=== PATIENT | male | born 2000 | race Caucasian/White ===

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

== ENCOUNTER 2024-06-24 20:03 | Emergency (ER) | payer OTHER, SELFPAY ==
[~2024-06-24] VITALS: Ht 177.8 cm; Wt 128.2 kg
[2024-06-24 20:03] VITALS: BP 110/55; TEMP 97.6; O2SAT 97
[~2024-06-24 20:03] MED LIST: IBUP200C25 PO
== END 2024-06-24 21:13 | disposition left against medical advice (07) ==
LOC: M ED 20:03
DX: Z53.21 Procedure and treatment not carried out due to patient leaving prior to being seen by health care provider (principal)